=== PATIENT | female | born 1945 | race Caucasian/White ===

== ENCOUNTER 2018-08-20 10:55 | Inpatient (IN) ==
[2018-08-15 12:58] LABS: Basophils # (Auto) 0.1 K/mcL (0.0-0.3); Basophils % (Auto) 0.8 % (0.0-2.0); Eosinophils # (Auto) 0.4 K/mcL (0.0-0.7); Granulocytes % (Auto) 49.6 % (38.0-78.0); Lymphocytes # (Auto) 2.7 K/mcL (1.5-4.8); Lymphocytes % (Auto) 35.9 % (15.5-49.0); Mean Cell Volume 84.3 fL (80.0-100.0); Mean Corpuscular HGB Conc 33.8 g/dL (31.0-36.0); Monocytes # (Auto) 0.6 K/mcL (0.1-0.9); Monocytes % (Auto) 7.7 % (1.0-12.0); Platelet Count 271 K/mcL (140-440); Red Cell Distribution Width 13.5 % (11.5-14.5)
[2018-08-15 13:06] LABS: Blood Urea Nitrogen 22 mg/dl (8-23)
[2018-08-15 15:11] LABS: Appearance,Urine CLEAR; Bilirubin,Urine NEG (NEG); Color,Urine YELLOW; Glucose,Urine (UA) NORM (NEG); Leukocyte Esterase,Urine NEG /uL (NEG); PH,Urine 5.5 (5.0-9.0); Protein,Urine NEG (NEG); Specific Gravity,Urine 1.025 (1.000-1.035); Urine Blood NEG mg/dL (<0.03); Urobilinogen,Urine NORM (NEG)
[~2018-08-20 10:55] MED LIST: 0.9 % SODIUM CHLORIDE 9 ML, KETOROLAC 30 MG, ROPIVACAINE HCL/PF 49.5 ML, EPINEPHrine 0.... IJ SCH; ACETAMINOPHEN 500 MG TABLET PO SCH; CELECOXIB 200 MG CAPSULE PO SCH; PREGABALIN 75 MG CAPSULE PO SCH; ceFAZolin 1 GM VIAL IV SCH; oxyCODONE 10 MG TAB.ER.12H PO SCH
[2018-08-20] MEDS ORDERED: MIDAZOLAM 5 MG/5 ML VIAL IV ONE (12:50)
[2018-08-20] MEDS ORDERED: PROPOFOL 200 MG/20 ML VIAL IV ONE (12:50)
[2018-08-20] MEDS ORDERED: LIDOCAINE HCL/PF 100 MG/5 ML SYRINGE IV ONE (12:50)
[2018-08-20] MEDS ORDERED: TRANEXAMIC ACID 1,000 MG/10 ML VIAL IV ONE (12:50)
[2018-08-20] MEDS ORDERED: DEXAMETHASONE 10 MG/ML VIAL IV ONE (12:50)
[2018-08-20] MEDS ORDERED: ePHEDrine 50 MG/ML AMPUL IV ONE (12:50)
[2018-08-20] MEDS ORDERED: ONDANSETRON 4 MG/2 ML VIAL IV ONE (12:50)
[2018-08-20] MEDS ORDERED: ROPIVACAINE HCL/PF 20 ML VIAL IJ ONE (12:50)
[2018-08-20] MEDS ORDERED: GENTAMICIN SULFATE 800 MG/20 ML VIAL IR ONE (13:53)
[2018-08-20] MEDS ORDERED: PROMETHAZINE 25 MG/ML VIAL IV PRN (14:05)
[2018-08-20] MEDS ORDERED: HYDROmorphone 2 MG/ML VIAL IV PRN ×2 (14:05→14:22)
[2018-08-20] MEDS ORDERED: IPRATROPIUM/ALBUTEROL 3 ML AMPUL.NEB NEB PRN (14:05)
[2018-08-20] MEDS ORDERED: diphenhydrAMINE 50 MG/ML VIAL IV PRN (14:05)
[2018-08-20] MEDS ORDERED: fentaNYL 100 MCG/2 ML VIAL IV PRN (14:05)
[2018-08-20] MEDS ORDERED: NALOXONE HCL 0.4 MG/ML VIAL IV PRN (14:05)
[2018-08-20] MEDS ORDERED: FLUMAZENIL 0.1 MG/ML ML IV PRN (14:05)
[2018-08-20] MEDS ORDERED: BENZOCAINE/MENTHOL 1 LOZENGE PO PRN ×2 (14:05→14:22)
[2018-08-20] MEDS ORDERED: MEPERIDINE 25 MG/ML SYRINGE IV PRN (14:05)
[2018-08-20] MEDS ORDERED: LACTATED RINGERS 250 ML IV PRN (14:05)
[2018-08-20] MEDS ORDERED: ONDANSETRON 4 MG/2 ML VIAL IV PRN ×2 (14:05→14:22)
[2018-08-20] MEDS ORDERED: LACTATED RINGERS 1,000 ML IV SCH (14:15)
--- NOTE | 2018-08-20 14:21 | Brief Operative Note ---
Date of procedure: 08/20/18 Pre-op diagnosis: Right knee djd Post-op diagnosis: same Procedure: Right tka with gelacio robot Grafts/Implants: Yes Anesthesia: SHABNAMA Surgeon: Oscar Ennis Special Education Bus Driver: Tulio Dozier Estimated blood loss (cc): 20 Tourniquet Time (Minutes): 54 Specimens Removed/Pathology: none sent Condition: stable Disposition: PACU
[2018-08-20] MEDS ORDERED: POLYETHYLENE GLYCOL 3350 17 GM PACKET PO PRN (14:22)
[2018-08-20] MEDS ORDERED: FLEETS ADULT ENEMA PR PRN (14:22)
[2018-08-20] MEDS ORDERED: MAGNESIUM HYDROXIDE 30 ML ORAL.SUSP PO PRN (14:22)
[2018-08-20] MEDS ORDERED: ACETAMINOPHEN 325 MG TABLET PO PRN (14:22)
[2018-08-20] MEDS ORDERED: TRANEXAMIC ACID 1,000 MG/10 ML VIAL IV SCH (14:22)
[2018-08-20] MEDS ORDERED: BISACODYL 10 MG SUPP.RECT PR PRN (14:22)
--- NOTE | 2018-08-20 14:52 | Operative Note ---
DATE OF OPERATION: 08/20/2018 PREOPERATIVE DIAGNOSIS: Right knee degenerative arthritis. POSTOPERATIVE DIAGNOSIS: Right knee degenerative arthritis. PROCEDURE: Right total knee using D-Sight components and the Ultriva robot. SURGEON: Oscar Ennis MD EXERCISE MANAGER: Tulio Dozier PA-C ANESTHESIA: General LMA anesthesia. COMPLICATIONS: None. TOTAL TOURNIQUET TIME: 54 minutes. IMPLANTS PLACED: A size 3 components with a 13 mm poly dished insert and a 33 mm patellar button. Components were cemented with antibiotic cement. COMPLICATIONS: None. ESTIMATED BLOOD LOSS: 20 mL TOURNIQUET: 250 pounds of pressure. DESCRIPTION OF PROCEDURE: The patient was brought to the operating room and put to sleep with general LMA anesthesia. Once asleep, the arrays were placed and registered center of hip rotation and medial and lateral malleoli. Intraarticular pins were placed, registered the two pins and then registered 30 points on the femur and tibia. Once this was done, we then irrigated thoroughly and then brought in the robot after balancing the knee at 90 degrees and 15 degrees. Once the components were placed, noting the patient had a flexion contracture of about 8 degrees with 2 degrees of varus we then removed osteophytes balanced knee and then brought in the robot and made the bony cuts. We trialed the components increasing from a size 11 to a size 13. This seemed to fit very nicely. We irrigated thoroughly and prepared the patella. It measured 21 mm in total thickness. This was cut to 13 mm and we placed a 33 mm patellar wide button with 9 mm in thickness. These all tracked well. We irrigated thoroughly. We cemented in the above-mentioned sizes. We then closed the fascial layer with #1 Stratafix x2. We irrigated thoroughly and closed the fascial layer with 2-0 Vicryl and suresh. The patient tolerated this well. There was no complication. [facility]:omar Job ID: [id number] Doc ID: [id number] sOcar Ennis MD
--- NOTE | 2018-08-20 15:24 | XRay Report ---
CLINICAL INFORMATION: Postsurgical follow-up TECHNIQUE: AP and crosstable lateral right knee COMPARISON: None. FINDINGS: Status post left total knee arthroplasty. Prosthetic components are in anatomic position. Postsurgical soft tissue and intra-articular gas IMPRESSION: Status post left total knee arthroplasty Interpreted and Authenticated by: Zaire Brownlee 08/20/18
[2018-08-20] MEDS: 0.45 % SODIUM CHLORIDE 1,000 ML IV SCH (15:30)
[2018-08-20] MEDS: FERROUS SULFATE 325 MG TABLET PO SCH (17:15)
[2018-08-20] MEDS: KETOROLAC 15 MG/ML VIAL IV SCH (17:15)
[2018-08-20] MEDS: DOCUSATE SODIUM 100 MG CAPSULE PO SCH (19:35)
[2018-08-20] MEDS: FLECAINIDE 50 MG TABLET PO SCH (19:35)
[2018-08-20] MEDS: ceFAZolin 1 GM VIAL IV SCH (19:36)
[2018-08-20] MEDS: 0.9 % SODIUM CHLORIDE 10 ML SYRINGE IV SCH (20:10)
[2018-08-20] MEDS ORDERED: ASPIRIN 325 MG ENTERIC COATED TABLET PO ONE (21:00)
[2018-08-20] MEDS ORDERED: ASPIRIN 325 MG ENTERIC COATED TABLET PO SCH (21:00)
[2018-08-20] MEDS ORDERED: SENNOSIDES 1 TABLET PO SCH (21:00)
[2018-08-20] MEDS ORDERED: TEMAZEPAM 15 MG CAPSULE PO PRN (21:00)
[2018-08-20] MEDS: oxyCODONE/APAP 5/325MG TABLET PO PRN (21:42)
[2018-08-21] MEDS: KETOROLAC 15 MG/ML VIAL IV SCH ×2 (00:15→05:48)
[2018-08-21] MEDS: 0.45 % SODIUM CHLORIDE 1,000 ML IV SCH ×2 (00:16→10:17)
[2018-08-21] MEDS: oxyCODONE/APAP 5/325MG TABLET PO PRN ×2 (04:36→10:25)
[2018-08-21] MEDS: ceFAZolin 1 GM VIAL IV SCH (04:36)
[2018-08-21] MEDS: 0.9 % SODIUM CHLORIDE 10 ML SYRINGE IV SCH (05:47)
[2018-08-21] MEDS ORDERED: OMEPRAZOLE 20 MG CAPSULE PO SCH (07:30)
--- NOTE | 2018-08-21 07:58 | Orthopedic Progress Note ---
Subjective Patient information: Note initiated : 08/21/18 at 7:57 am Service Date, if different from initiated Date: [] Patient: Alyson Long 72 y/o F admitted on 08/20/18 for Right Robotic Total Knee Arthroplasty. Chief Complaint: [] minimall pain and eating well and walkingwell Objective Vital signs: Vital Signs Temp Pulse Resp BP BP Pulse Ox 08/21/18 04:32 97.7 F 65 12 133/68 91 08/21/18 04:00 75 08/21/18 00:13 75 08/21/18 00:04 97.9 F 72 12 124/66 92 08/20/18 19:34 97.9 F 75 12 132/61 92 08/20/18 19:25 18 08/20/18 17:14 97.6 F 18 138/64 94 08/20/18 16:23 134/65 93 08/20/18 15:23 135/68 91 08/20/18 15:15 98.3 F 73 14 147/64 98 08/20/18 15:00 97.0 F 72 17 137/64 100 08/20/18 14:50 71 16 146/65 100 08/20/18 14:45 70 15 145/58 93 08/20/18 14:40 97.0 F 80 16 145/58 93 08/20/18 10:55 97.7 F 64 17 118/68 95 Intake and Output 08/20/18 08/21/18 08/21/18 21:59 05:59 13:59 Intake Total 1850 800 Output Total 500 500 Balance 1350 300 Intake: Oral 250 800 IV - Manual Only 1600 Output: Void Amount 500 500 Other: Meal Dinner Percent of Meal Consumed 100% Weight 273 lb Intake & Output: Intake & Output 08/20/18 08/21/18 08/21/18 21:59 05:59 13:59 Intake Total 1850 800 Output Total 500 500 Balance 1350 300 Weight 273 lb Intake: Oral 250 800 IV - Manual Only 1600 Output: Void Amount 500 500 Other: Meal Dinner Percent of Meal Consumed 100% Incision: Yes healing Incision clean and dry: Yes Weight bearing status: full Neurological exam IM: Yes alert, Yes oriented X3 Extremities exam IM: Yes Foot pink and warm, Yes neurovascular intact - Allied Health Allied health notes reviewed: PT - Labs CBC & BMP: 08/21/18 05:34 08/15/18 10:26 Labs: 08/21/18 08/15/18 05:34 10:26 Hgb 14.5 Hct 37.9 43.0
--- NOTE | 2018-08-21 08:00 | Discharge Summary ---
Ortho Discharge - TKA - Patient Instructions Diet: Regular Diet Activity: activity as tolerated, weight bearing as tolerated Total Knee Protocol: For Total Knee: Start ROM SUSAN with stationary bike or rocking chair. Work on gaining full extension of knee. Posterior dislocation precautions provided. Hip abductor strengthening and gait training instructions provided. Apply Cryocuff as instructed. Dressing Care: May shower in 2 days - Follow Up Plan Follow Up Appointments: Bon Kurtz PA-C [Physician Media Developer] - 09/04/18 8:10 am Disposition: Hospice - Home Prognosis: Good Rehab Potential: Good I certify that the patient requires SNF services: No Overall status at discharge: patient is progressing back to baseline - Orders For Discharge Prescriptions: oxyCODONE HCL [Roxicodone] 5 - 10 mg PO Q4HP PRN #60 tab PRN Reason: Pain Level 3-6 Promethazine [Phenergan] 25 mg PO Q4-6HP PRN #30 tab PRN Reason: Nausea Additional Discharge Orders: Physical Therapy at Discharge - TKA Location: None Selected CPM Discharge Order Location: None Selected Toilet Riser Discharge Order Location: None Selected Walker Location: None Selected
[2018-08-21] MEDS: DOCUSATE SODIUM 100 MG CAPSULE PO SCH (08:42)
[2018-08-21] MEDS: FERROUS SULFATE 325 MG TABLET PO SCH (08:42)
[2018-08-21] MEDS: FLECAINIDE 50 MG TABLET PO SCH (08:43)
[2018-08-21] MEDS ORDERED: LISINOPRIL 20 MG TABLET PO SCH (09:00)
[2018-08-21] MEDS ORDERED: CALCIUM (OYSTER SHELL) 500 MG TABLET PO SCH (09:00)
[2018-08-21] MEDS ORDERED: METOPROLOL SUCCINATE 25 MG TAB.XL.24H PO SCH (09:00)
[2018-08-21] MEDS ORDERED: MULTIVIT,THER IRON,CA,FA & MIN 1 TABLET PO SCH (09:00)
[2018-08-21] MEDS ORDERED: APIXABAN 2.5 MG TABLET PO SCH (14:00)
== END 2018-08-21 10:55 | disposition hospice, home (50) | DRG 470 ==
LOC: MEDSUR 10:55
PROVIDERS: ADMIT Orthopaedic Surgery; ATTEND Orthopaedic Surgery